=== PATIENT | female | born 1960 ===

== ENCOUNTER → 2018-10-31 15:09 | Outpatient (CLI) | payer SELFPAY ==
--- NOTE | 2018-10-31 15:12 | RAD_ITS ---
STUDY: X-RAY - LUMBAR SPINE REASON FOR EXAM: Female, 58 years old. Low back and bilateral hip pain. TECHNIQUE: 3 view(s) of the lumbar spine were obtained. COMPARISON: None FINDINGS: Normal lumbar lordosis. There is a 7 degree levoscoliosis of the lower lumbar spine. There is minor retrolisthesis of L4 on L5. There is multilevel endplate spondylosis of the lumbar vertebrae, most prominent to the left at L1-2 and anteriorly at L4-5. There is multi-level degenerative disc disease with disc space narrowing most prominent at L4-5. There is no demonstrated fracture. Degenerative arthroses suggested in the lower lumbar facet joints. There are surgical clips consistent with prior cholecystectomy in the right upper quadrant of the abdomen. RAD/Lumbar Spine 2 or 3 Views IMPRESSION: Degenerative changes of the spine, as detailed above. Electronically Signed: Shad Phan MD at 15:27 EDT , Service support ,
--- NOTE | 2018-10-31 15:12 | RAD_ITS ---
STUDY: X-RAY - PELVIS AND BILATERAL HIPS REASON FOR EXAM: Lateral pain, no specific injury. TECHNIQUE: AP view of the pelvis.? 2 views of the right hip, and 2 views of the left hip were obtained. COMPARISON: None. FINDINGS: There are small pelvic phleboliths. There is a bone island in the left ilium. Normal bilateral superior and inferior pubic rami. Normal pubic symphysis. Normal bilateral ischial tuberosities. Normal visualized right femoral head. There is right hip arthrosis with marginal osteophytes and mild to moderate joint space narrowing at the superior lateral aspect. Normal visualized left femoral head. There is left hip arthrosis with marginal osteophytes and mild to moderate joint space narrowing at the superior lateral aspect. RAD/Hips B/L min 2 views w/ Pelvis IMPRESSION: Bilateral hip arthrosis. Electronically Signed: Mart Christopher MD at 15:35 EDT Tel , Service support ,
== END ==
PROVIDERS: Referring Provider Orthopaedic Surgery; Visit Provider Orthopaedic Surgery
DX: M47.896 Other spondylosis, lumbar region (principal); M51.36 Other intervertebral disc degeneration, lumbar region; M16.0 Bilateral primary osteoarthritis of hip
CPT/HCPCS: 72100; 73521